=== PATIENT | female | born 1995 | race Hispanic/Latino ===

== ENCOUNTER 2016-11-30 09:48 | Inpatient (IN) | payer BC, MEDICAID ==
--- NOTE | 2016-11-27 09:54 | History and Physical Report ---
History of Present Illness Date of examination: 11/27/16 Date of admission: 11/24/16 Chief complaint: cs History of present illness: Pt presents for elective primary c/s due to PTSD associated with previous vaginal delivery. Pt understands the risk of surgery and all questions were addressed and answered. She was given ample time to ask questions prior to signing the consent and had been counseled since 35 wks regarding this mode of delivery. Consents were singed and placed on the chart. Pt last delivery was a forceps assisted delivery that resulted in a 3rd degree laceration, post bleeding, and currently has left pt with lasting pain and irritation in the place were scar is. EDC Calculations LMP: 11/30/2016 EDC Confirmation: 11/30/2016 Gestational Age: 17 weeks Past History : 2 Term Births: 1 Living Children: 1 # 1 Delivery date: 2014 Weeks Gestation: 39 Delivery type: forceps Anesthesia type: epidural Delivery [place] [facility] [place] Sex: Male weight: 7-13 Comments: Social induction Past Medical History: Anxiety Stopped clonazepam one month ago Past Surgical History: Negative Past Surgical History Past Medical History Surgery (Non-sawsmith): Negative Past Surgical History Abnormal PAP: negative MICKEY Exposure: negative Infertility: negative Uterine Anomaly: negative Uterine Surgery (not C/S): negative Other Gynecologic Problems: negative Social Hx: Patient is single Smoking History: Patient currently smokes every day. Patient has been counseled to quit. Infection History Hx of STD: none Personal hx. of genital herpes: no Partner hx. of genital herpes: no Varicella/Chicken Pox Status: Previous Disease TB Risk: no Genetic History Congenital Heart Defect: Mom: no Dad: no Elmer Disease: Mom: no Dad: no Thalassemia Mom: no Dad: no Neural Tube Defect Mom: no Dad: no Down's Syndrome Mom: no Dad: no Flako-Sachs Mom: no Dad: no Sickle Cell Disease/Trait Mom: no Dad: no Hemophilia Mom: no Dad: no Muscular Dystrophy Mom: no Dad: no Cystic Fibrosis Mom: no Dad: no [place] Chorea Mom: no Dad: no Mental Retardation Mom: no Dad: no Fragile X Mom: no Dad: no Other Genetic/Chromosomal Disorder Mom: no Dad: no Child w/other defect Mom: no Dad: no Enviromental Exposures Enviromental Exposures Reviewed Xray Exposure: no Medication, drug, or alcohol use since LMP: no Chemical/Other Exposure: no Exposure to Cat Liter: no Hx of Parvovirus (Fifth Disease): no Occupational Exposure to Children: none Comments: Unemployed Past History Past Medical History: other (anxiety) Past Surgical History: no surgical history TUB PULLER History: denies: abnormal PAP smear, chlamydia Family/Genetic History: none Social history: no significant social history, single - Obstetrical History Expected Date of Delivery: 11/30/16 Actual Gestation: 39 Week(s) 4 Day(s) : 2 Para: 1 Number of Living Children: 1 Medications and Allergies Home Medications Medication Instructions Recorded Confirmed Last Taken Type Ibuprofen [Motrin 800 MG tab] 800 mg PO Q8HR PRN #30 tablet 11/27/16 Unknown Rx oxyCODONE /ACETAMINOPHEN [Percocet 1 tab PO Q6HR PRN #30 tablet 11/27/16 Unknown Rx 5/325] Active Meds: Active Medications Citric Acid/Sodium Citrate (Bicitra) 30 ml PO ONCE ONE Stop: 11/30/16 05:01 Famotidine (Pepcid) 20 mg IV ONCE ONE Stop: 11/30/16 05:01 Cefazolin Sodium (Ancef/Sterile Water 2 Gm/20 Ml) 2 gm in 20 mls @ 80 mls/hr IV PREOP NR PRN Reason: Protocol Lactated Ringer's (Lactated Ringers) 1,000 mls @ 2,250 mls/hr IV PREOP CARLOS Stop: 11/28/16 10:27 Oxytocin/Sodium Chloride (Pitocin/Ns 20 Unit/1000ml Drip) 20 units in 1,000 mls @ 0 mls/hr IV TITR CARLOS PRN Reason: As Directed Metoclopramide HCl (Reglan) 10 mg IV ONCE ONE Stop: 11/30/16 05:01 Review of Systems All systems: negative - Physical Exam Cardiovascular: Normal S1, Normal S2 Lungs: Positive: Clear to auscultation, Normal air movement Abdomen: Positive: normal appearance, soft. Negative: distention, tenderness, guarding Genitourinary (Female): Positive: normal external genitalia, normal perenium - Obstetrical FHR: auscultation normal Results All other labs normal. Assessment and Plan - Patient Problems (1) 40 weeks gestation of Status: Acute Plan to address problem: -desires primary c/s -consents signed -To OR for above stated procedure.
[2016-11-30] MEDS ORDERED: LACTATED RINGERS 1,000 ML ONE (10:29)
[2016-11-30 10:54] LABS: Basophils % (Auto) 0.4 % (0.0-1.8); Eosinophils % (Auto) 2.1 % (0.0-4.3); Hematocrit 30.2 % (30.3-42.9); Hemoglobin 9.7 gm/dl (10.1-14.3); Mean Corpuscular HGB Conc 32 % (30-34); Mean Corpuscular Hemoglobin 28 pg (28-32); Mean Corpuscular Volume 87 fl (79-97); Platelet Count 282 K/mm3 (140-440); Red Blood Count 3.49 M/mm3 (3.65-5.03); Red Cell Distribution Width 15.8 % (13.2-15.2); White Blood Count 14.1 K/mm3 (4.5-11.0)
[2016-11-30] MEDS ORDERED: PITOCin/NS 20 UNIT/1000ML DRIP 20,000 MILLIUNITS/1,000 ML BAG IV ONE (11:14)
[2016-11-30] MEDS ORDERED: PEPCID IV ONE (11:15)
[2016-11-30] MEDS ORDERED: REGLAN ONE (11:15)
[2016-11-30] MEDS ORDERED: BICITRA ONE (11:15)
[2016-11-30] MEDS ORDERED: BICITRA PO NR (11:30)
[2016-11-30] MEDS ORDERED: PEPCID IV NR (11:30)
[2016-11-30] MEDS ORDERED: ANCEF/STERILE WATER 2 GM/20 ML 2 GM/20 ML SYRINGE IV NR (11:30)
[2016-11-30] MEDS ORDERED: REGLAN IV NR (11:30)
[2016-11-30] MEDS ORDERED: LACTATED RINGERS 1,000 ML IV SCH (11:30)
[2016-11-30] MEDS ORDERED: ZOFRAN IV PRN (11:42)
[2016-11-30] MEDS ORDERED: DILAUDID IV PRN (11:42)
[2016-11-30] MEDS ORDERED: NARCAN 0.4 MG/1 ML IV PRN ×2 (11:42→13:06)
[2016-11-30] MEDS ORDERED: BENADRYL IV PRN (11:42)
--- NOTE | 2016-11-30 11:42 | Anesthesia Consultation ---
Anesthesia Consult and Med Hx Date of service: 11/30/16 - Airway Anesthetic Teeth Evaluation: Good ROM Head & Neck: Adequate Mental/Hyoid Distance: Adequate Mallampati Class: Class II Intubation Access Assessment: Probably Good - Pre-Operative Health Status ASA Pre-Surgery Classification: ASA2 Proposed Anesthetic Plan: Epidural, Spinal - Pulmonary Hx Smoking: Yes Hx Asthma: No COPD: No - Cardiovascular System Hx Hypertension: No - Central Nervous System Hx Seizures: No Hx Psychiatric Problems: Yes (anxiety, panic attacks) - Endocrine Hx Renal Disease: No Hx End Stage Renal Disease: No Hx Hypothyroidism: No Hx Hyperthyroidism: No - Hematic Hx Anemia: No Hx Sickle Cell Disease: No - Other Systems Hx Alcohol Use: No Hx Obesity: Yes (BMI 36.5)
[2016-11-30] MEDS ORDERED: ANCEF/STERILE WATER 2 GM/20 ML IV ONE (11:43)
[2016-11-30] MEDS ORDERED: MORPHINE ONE (11:44)
--- NOTE | 2016-11-30 11:45 | Anesthesia Day of Surgery ---
Anesthesia Day of Surgery - Day of Surgery Patient Examined: Yes Patient H&P Reviewed: Yes Patient is NPO: Yes
[2016-11-30] MEDS ORDERED: NACL 0.9% 500 ML 500 ML IV SCH (11:52)
[2016-11-30] MEDS ORDERED: ePHEDrine SULFATE ONE (11:58)
[2016-11-30] MEDS ORDERED: SODIUM CHLORIDE FLUSH SYRINGE 10 ML IV SCH (12:00)
[2016-11-30] MEDS ORDERED: PITOCin/NS 20 UNIT/1000ML DRIP 20 UNITS/1,000 ML BAG IV SCH ×2 (12:00→14:00)
[2016-11-30] MEDS ORDERED: WATER FOR IRRIG STERILE IR ONE (12:00)
[2016-11-30] MEDS ORDERED: NACL 0.9% IR ONE (12:00)
[2016-11-30] MEDS ORDERED: NACL 0.9% 1000 ML 1,000 ML ONE (12:15)
[2016-11-30] MEDS ORDERED: ZOFRAN ONE (12:38)
[2016-11-30] MEDS ORDERED: TORADOL ONE (12:38)
[2016-11-30] MEDS ORDERED: LANSINOH TP PRN (13:06)
[2016-11-30] MEDS ORDERED: TUCKS PAD TP PRN (13:06)
[2016-11-30] MEDS ORDERED: MYLICON PO PRN (13:06)
[2016-11-30] MEDS ORDERED: ANUCORT-HC PR PRN (13:06)
--- NOTE | 2016-11-30 13:22 | Operative Report ---
Operative Report Operative Report: Date of procedure: 11/30/2016 Pre-operative diagnosis: 40 weeks gestation elective primary section History of forceps assisted vaginal delivery Anxiety Post-operative diagnosis: Same Procedure name(s): Primary low transverse section via Pfannenstiel skin incision Surgeon: Dr. Roche Print Line Tailer: Certified surgical scrub assistant director of security Anesthesia: Spinal EBL: 700 mL Urine output: 200 mL of clear urine at end of procedure Fluids: 1500 mL Findings: Liveborn female infant nuchal cord 1 easily reduced weight 7 lbs. 7 oz. Apgars of 9 and 9 at one and 5 minutes Nuchal cord 1 easily reduced Grossly normal fallopian tubes and ovaries bilaterally Normal uterus Indications: Patient with a history of vacuum-assisted vaginal delivery that was very traumatic. The delivery caused the patient to have anxiety throughout the entire as well as anxiety and vaginal pain since delivery. Patient did not desire to have a vaginal delivery due to the above-stated symptoms she was having. Patient desired elective primary section. Patient was counseled after several office sessions regarding the risks benefits and alternatives to primary section. She was given ample time to ask questions all of which were addressed. Patient signed informed consent prior to section today. All questions were addressed and answered. Procedure: Patient was taking to the operating room. Patient was then prepped and draped in sterile fashion after anesthesia was found to be adequate. A low transverse skin incision was made with the scalpel and carried down to the underlying layer of fascia with the Bovie. The fascia was then incised in the midline and this incision was extended bilaterally with the Bovie. The superior aspect of the fascia was grasped with Clark clamps tented upward and dissected off of the anterior rectus muscles with the scalpel. In similar fashion the inferior aspect of the fascia was grasped with Clark clamps tented upward and dissected off of the anterior rectus muscles. The rectus muscles were then bluntly divided in the midline. The peritoneum was identified and entered into bluntly. The Andrew retractor was placed The bladder blade was placed. The bladder flap was created using the Metzenbaum scissors. The bladder blade was replaced. A lower transverse uterine incision was made with the scalpel and extended bilaterally with the bandage scissors. Artificial rupture of membranes was performed yielding clear amniotic fluid. The infant's head was then delivered atraumatically. The anterior shoulder and rest of infant delivered without difficulty. The umbilical cord was clamped x2. The cord was cut. The infant was then placed in sterile bassinet. The cord blood was collected The placenta was manually extracted in its entirety. The uterus was exteriorized and cleared of all clots and debris. The uterine incision was closed using 0 Vicryl in a running locking fashion. A second imbricating layer of the same suture was then created. The posterior cul-de-sac was copiously irrigated. The uterus was returned to the abdomen. Tisseel was placed along the uterine incision to secure excellent hemostasis. The gutters were also irrigated. The Andrew retractor was removed. The anterior rectus muscles were reapproximated using 3-0 Vicryl. The anterior rectus fascia was reapproximated using 0 Vicryl in a running fashion. The subcuticular fat was reapproximated using 2-0 Vicryl in a running fashion. The skin was reapproximated with 4-0 Monocryl with a subcuticular stitch. The patient tolerated the procedure well. Sponge lap and needle counts were all correct x3. Patient was taken to the recovery room awake and in stable condition.
[2016-11-30] MEDS: D5LR 1,000 ML IV SCH (15:21)
[2016-11-30] MEDS: SUDAFED PO PRN (16:20)
[2016-11-30] MEDS ORDERED: FIORICET PO PRN (17:48)
[2016-11-30] MEDS: NORCO 5/325 PO PRN ×2 (18:00→22:20)
--- NOTE | 2016-11-30 18:40 | Progress Note ---
Subjective Date of service: 11/30/16 Interval history: Ms Rivas is a 21 year old female who underwent C section today under spinal anesthesia. She is presently experiencing a severe headache. She has a history of headaches, mainly sinus type but also migraine. She also reports that she had a similar headache after her prior c section. The headache does not have clear positional characteristics and she did not have a blood patch after the prior c section. She reports some improvement after norco. Do not feel that this headache is post dural puncture but will reevaluate tomorrow. Objective - Constitutional Vitals: Vital Signs - 12hr 11/30/16 11/30/16 11/30/16 13:11 13:15 13:20 Temperature 98 F Pulse Rate 87 88 87 Respiratory 14 14 14 Rate Blood Pressure 141/67 130/75 139/76 O2 Sat by Pulse 97 97 97 Oximetry 11/30/16 11/30/16 11/30/16 13:25 13:40 13:55 Temperature Pulse Rate 91 H 87 95 H Respiratory 15 15 14 Rate Blood Pressure 134/76 131/69 140/78 O2 Sat by Pulse 97 97 97 Oximetry 11/30/16 11/30/16 11/30/16 14:10 14:20 15:16 Temperature Pulse Rate 96 H 99 H Respiratory 14 14 22 Rate Blood Pressure 136/56 134/69 O2 Sat by Pulse 97 97 Oximetry - Labs CBC & Chem 7: 11/30/16 10:30 Labs: Abnormal lab results 11/30/16 11/30/16 Range/Units 10:30 10:30 WBC 14.1 H (4.5-11.0) K/mm3 RBC 3.49 L (3.65-5.03) M/mm3 Hgb 9.7 L (10.1-14.3) gm/dl Hct 30.2 L (30.3-42.9) % RDW 15.8 H (13.2-15.2) % Floyd # 1.0 H (0.0-0.8) K/mm3 Seg Neutrophils % 74.9 H (40.0-70.0) % Seg Neutrophils # 10.5 H (1.8-7.7) K/mm3 Crossmatch See Detail
[2016-11-30] MEDS: ANCEF/NS 1 GM/50 ML 1 GM/50 ML BAG IV SCH (20:26)
[2016-11-30] MEDS: TORADOL IV PRN (20:38)
[2016-12-01] MEDS: SUDAFED PO PRN ×3 (00:01→20:45)
[2016-12-01] MEDS: D5LR 1,000 ML IV SCH (00:02)
[2016-12-01] MEDS: TORADOL IV PRN (02:48)
[2016-12-01] MEDS: NORCO 5/325 PO PRN (04:18)
[2016-12-01] MEDS: ANCEF/NS 1 GM/50 ML 1 GM/50 ML BAG IV SCH (04:18)
[2016-12-01] MEDS ORDERED: BOOSTRIX IM ONE (06:00)
[2016-12-01 06:20] LABS: Hematocrit 25.5 % (30.3-42.9); Hemoglobin 8.3 gm/dl (10.1-14.3)
[2016-12-01] MEDS ORDERED: PERCOCET 5/325 ONE (07:45)
[2016-12-01] MEDS ORDERED: PERCOCET 5/325 PO PRN (07:49)
--- NOTE | 2016-12-01 07:54 | Progress Note ---
<PANTERATHOMPSON Donald - Last Filed: 12/01/16 07:49> Assessment and Plan patient in bed, crying with pain unrelieved by all pain medication received up to this time. Discussed expectations for pain d/t having marjor abdominal surgery. Will order additional PO pain medication. Discussed importance of advancing activity today as tolerated, rn to remove dressing after pain medication. Afebrile, tachycardia in the 103-109 range, b/p 130/40's/50-70's. Pt denies HOSKINS, blurred vision or epigastric pain. Pt is taking sudafed for nasal/ sinus congestion that could also be contributing to the slightly elevated blood pressures. Pre-e labs ordered by Dr. Riddle this morning. post op H&H 8.3/25.5 , patient denies s/s anemia during ambulation. Anemia preexisting in with expected decrease post op, will supplement with PO FE. Continue current postop pathway. - Patient Problems (1) Anemia affecting in third trimester Current Visit: Yes Status: Acute Plan to address problem: Fe and colace monitor for s/s anemia (2) delivery delivered Current Visit: Yes Status: Acute Subjective - Subjective Date of service: 12/01/16 Principal diagnosis: postopday #1 s/p primary c/s Patient reports: appetite normal, voiding normally, flatus, no dizzy ambulation , no pain well controlled, no ambulating normally, no nauseated [place]: doing well (infant in holding nursery), bottle feeding Objective - Vital Signs Latest vital signs: Vital Signs Temp Pulse Pulse Resp BP BP Pulse Ox 12/01/16 04:48 98.4 F 106 H 20 142/72 12/01/16 01:18 98.4 F 103 H 20 134/76 11/30/16 20:26 98.4 F 109 H 20 142/59 11/30/16 18:00 22 11/30/16 15:16 22 11/30/16 14:20 99 H 14 134/69 97 11/30/16 14:10 96 H 14 136/56 97 11/30/16 13:55 95 H 14 140/78 97 11/30/16 13:40 87 15 131/69 97 11/30/16 13:25 91 H 15 134/76 97 11/30/16 13:20 87 14 139/76 97 11/30/16 13:15 88 14 130/75 97 11/30/16 13:11 98 F 87 14 141/67 97 Intake and Output 11/30/16 12/01/16 12/01/16 22:59 06:59 14:59 Intake Total 530 1120 Output Total 1450 2200 Balance -920 -1080 Intake: IV 410 1000 ANCEF/NS 1 GM/50 ML 1 gm 100 In 50 ml @ 100 mls/hr IV Q8H CARLOS Rx#:[id number] D5lr 1,000 ml @ 125 mls/ 310 1000 hr IV DIRECT CARLOS Rx#: [id number] Oral 120 Intake, Free Water 120 Output: Urine 1450 2200 Indwelling Catheter 900 1000 Void 550 1200 Other: Total, Intake Amount 120 Total, Output Amount 550 700 - Exam Breasts: Present: normal Cardiovascular: Present: Regular rate Lungs: Present: Clear to auscultation, Normal air movement Abdomen: Present: normal appearance, soft Uterus: Present: normal, firm, fundal height at umbilicus Extremities: Present: normal Deep Tendon Reflex Grade: Normal +2 Incision: Present: normal, dry, dressed - Labs Labs: Abnormal lab results 11/30/16 11/30/16 12/01/16 Range/Units 10:30 10:30 05:33 WBC 14.1 H (4.5-11.0) K/mm3 RBC 3.49 L (3.65-5.03) M/mm3 Hgb 9.7 L 8.3 L (10.1-14.3) gm/dl Hct 30.2 L 25.5 L (30.3-42.9) % RDW 15.8 H (13.2-15.2) % [place] # 1.0 H (0.0-0.8) K/mm3 Seg Neutrophils % 74.9 H (40.0-70.0) % Seg Neutrophils # 10.5 H (1.8-7.7) K/mm3 Crossmatch See Detail <RIGO RIDDLE - Last Filed: 12/01/16 20:01> Assessment and Plan Pt resting in bed with multiple family members and visitors present. States she feels much better. minimal bleeding Lungs: CTAB HR:: 112 Extremities: NT, trace edema, DP equal and strong, negative calf tenderness(B), negative Marlen's (B) h/h stable Will observe for now. Encouraged to take Zoloft No evidence DVT, PE Objective - Vital Signs Latest vital signs: Vital Signs Temp Pulse Resp BP Pulse Ox 12/01/16 19:00 134 H 98 12/01/16 18:13 98.4 F 130 H 20 133/65 12/01/16 15:43 20 12/01/16 12:00 125 H 12/01/16 11:45 18 12/01/16 08:45 98.5 F 118 H 20 133/83 12/01/16 08:00 20 12/01/16 04:48 98.4 F 106 H 20 142/72 12/01/16 01:18 98.4 F 103 H 20 134/76 11/30/16 20:26 98.4 F 109 H 20 142/59 Intake and Output 12/01/16 12/01/16 12/01/16 06:59 14:59 22:59 Intake Total 1120 600 120 Output Total 2200 1400 Balance -1080 -800 120 Intake: IV 1000 D5lr 1,000 ml @ 125 mls/ 1000 hr IV DIRECT CARLOS Rx#: [id number] Oral 600 120 Intake, Free Water 120 Output: Urine 2200 1400 Indwelling Catheter 1000 Void 1200 1400 Other: Total, Intake Amount 240 120 Total, Output Amount 700 600 Voiding Method Toilet Toilet - Labs Labs: Abnormal lab results 12/01/16 12/01/16 12/01/16 Range/Units 05:33 07:55 19:13 Hgb 8.3 L 8.8 L (10.1-14.3) gm/dl Hct 25.5 L 27.4 L (30.3-42.9) % Creatinine 0.5 L (0.7-1.2) mg/dL Lactate Dehydrogenase 248 H (91-180) units/L
[2016-12-01 08:43] LABS: Alanine Aminotransferase 12 units/L (7-56); Lactate Dehydrogenase 248 units/L (91-180); Uric Acid 6.2 mg/dL (3.5-7.6)
[2016-12-01] MEDS ORDERED: ZOLOFT PO SCH (10:00)
[2016-12-01] MEDS: FEOSOL PO SCH (11:45)
[2016-12-01] MEDS: PERCOCET 5/325 PO PRN ×3 (11:45→20:49)
[2016-12-01] MEDS: MOTRIN PO PRN ×2 (11:45→18:10)
--- NOTE | 2016-12-01 12:37 | Progress Note ---
Subjective Date of service: 12/01/16 Principal diagnosis: postopday #1 s/p primary c/s Interval history: 1st POD after Patient is in the bed, comfortable. Post op pain is well controlled with pain meds. No headache. Ambulated well. No residual neurological deficit. No anesthesia complications Objective - Constitutional Vitals: Vital Signs - 12hr 12/01/16 12/01/16 12/01/16 01:18 04:48 08:00 Temperature 98.4 F 98.4 F Pulse Rate [ 103 H 106 H Left] Respiratory 20 20 20 Rate Blood Pressure 134/76 142/72 [Left Arm] 12/01/16 12/01/16 08:45 11:45 Temperature 98.5 F Pulse Rate [ 118 H Left] Respiratory 20 20 Rate Blood Pressure 133/83 [Left Arm] - Labs CBC & Chem 7: 12/01/16 07:55 12/01/16 07:55 Labs: Abnormal lab results 12/01/16 12/01/16 Range/Units 05:33 07:55 Hgb 8.3 L (10.1-14.3) gm/dl Hct 25.5 L (30.3-42.9) % Creatinine 0.5 L (0.7-1.2) mg/dL Lactate Dehydrogenase 248 H (91-180) units/L
[2016-12-01 19:37] LABS: Hematocrit 27.4 % (30.3-42.9); Hemoglobin 8.8 gm/dl (10.1-14.3)
[2016-12-02] MEDS: PERCOCET 5/325 PO PRN ×4 (01:28→16:43)
[2016-12-02 02:37] LABS: Bacteria,Urine 2+ /HPF (Negative); Bilirubin,Urine NEG (Negative); Blood,Urine LG (Negative); Ketones,Urine NEG (Negative); Leukocyte Esterase,Urine LG (Negative); Mucus,Urine FEW /HPF; Nitrite,Urine NEG (Negative); Urobilinogen,Urine < 2.0 mg/dL (<2.0)
[2016-12-02 02:40] LABS: RBC,Urine > 182.0 /HPF (0.0-6.0)
--- NOTE | 2016-12-02 06:31 | Discharge Summary ---
Providers - Providers Date of Admission: 11/30/16 09:48 Date of discharge: 12/02/16 (pt asking to be discharged. She is aware we are doing testing for reasons for tachycardia) Attending physician: ALAINA HERNANDEZ Primary care physician: ALAINA HERNANDEZ Hospitalization Reason for admission: section Delivery: Procedure: primary low transverse Episiotomy: none Laceration: none Incision: normal, dry, intact Other procedures: none complications: none Discharge diagnosis: IUP at term delivered baby: female Hospital course: uncomplicated primary section Pt asking to go home today "I want to go to my own bed." VS: pulse remains elevated 110-117 BP 140-130/70-60 afebrile FF below umb Lochia scant Incision D&I Pt wearing abdominal binder for support. As noted pt has pre-existing anemia remains asymptomatic. Pt stable s/p primary section P: d/c later today with instructions. Will consult with . RN states the Free 3 thyroid lab is a send out, no results at this time. Condition at discharge: Good Disposition: DISCHARGED TO HOME OR SELFCARE - Discharge Diagnoses (1) delivery delivered Status: Acute Comment: RTO 1 week for postop care Plan - Discharge Medications Prescriptions: Docusate Sodium [Colace] 100 mg PO BID PRN #30 capsule PRN Reason: Constipation Ferrous Sulfate [Feosol 325 MG tab] 325 mg PO BID #60 tablet Ibuprofen [Motrin 800 MG tab] 800 mg PO Q8HR PRN #30 tablet PRN Reason: Pain oxyCODONE /ACETAMINOPHEN [Percocet 5/325] 1 tab PO Q4HR #30 tab - Provider Discharge Summary Activity: routine, no sex for 6 weeks, no heavy lifting 4 weeks, no strenuous exercise Diet: routine Instructions: routine Additional instructions: [] Smoking cessation referral if applicable(refer to patient education folder for contact #) [] Refer to [facility] Booklet Call your doctor immediately for: * Fever > 100.5 * Heavy vaginal bleeding ( >1 pad per hour) * Severe persistent headache * Shortness of breath * Reddened, hot, painful area to leg or breast * Drainage or odor from incision. * Keep incision clean and dry at all times and follow doctor's instructions regarding bathing/showering - Follow up plan Follow up: ALAINA HERNANDEZ MD [Primary Care Provider] - 7 Days (Congratulations! Please call [phone] to schedule your postoperative visit. Please take medications as prescribed. Call with any headache not relieved with Tylenol, blurred vision, chest pain. Call with any concerns. )
--- NOTE | 2016-12-02 07:06 | Event Note ---
Date: 12/02/16 (will hold d/c) After speaking with plan will be to hold discharge until tomorrow to further evaluate the tachycardia. Pt made aware of delay by RN will see pt @ lunch to answer all questions.
[2016-12-02] MEDS: FEOSOL PO SCH (11:00)
[2016-12-02] MEDS: MOTRIN PO PRN ×2 (11:01→16:44)
--- NOTE | 2016-12-02 12:41 | Progress Note ---
Subjective Date of service: 12/02/16 Principal diagnosis: postopday #1 s/p primary c/s Interval history: 2nd POD after Patient is in the bed, comfortable. Post op pain is well controlled with pain meds. No headache. Ambulated well. No residual neurological deficit. No anesthesia complications Objective - Constitutional Vitals: Vital Signs - 12hr 12/02/16 12/02/16 12/02/16 01:20 07:40 08:00 Temperature 98 F 97.8 F Pulse Rate [ 117 H 115 H Left] Respiratory 20 20 Rate Blood Pressure 138/67 132/75 [Left Arm] O2 Sat by Pulse 98 Oximetry - Labs CBC & Chem 7: 12/01/16 19:13 12/01/16 07:55 Labs: Abnormal lab results 12/01/16 12/01/16 Range/Units 19:13 Unknown Hgb 8.8 L (10.1-14.3) gm/dl Hct 27.4 L (30.3-42.9) % Urine WBC (Auto) 33.0 H (0.0-6.0) /HPF
--- NOTE | 2016-12-02 13:19 | Event Note ---
Date: 12/02/16 Agree with MW note and exam. pt doing well this am when I was at bedside aroun 0800. She desires d/c home. No sob, chest pain, headaches, dizziness with ambulation or palpitations. She states she has had anxiety since being the the hospital and after sx but was able to rest well last night and reports no anxiety at this time. Will con't to monitor for now as tacycardia seems to be during periods when pt is having increased stress or anxiety. If pt remains stable and pulse <120 will d/c home with f/u in the office. Plan of care d/w pt and mother and all questions were addressed and answered.
[2016-12-02] MEDS: NORCO 5/325 PO PRN (14:56)
[2016-12-02 17:23] VITALS: BP 133/66
[2016-12-03] MEDS ORDERED: BOOSTRIX IM ONE (06:00)
== END 2016-12-02 18:45 | disposition home or self-care (01) | DRG 766 ==
LOC: APU 09:48 → OB 14:34
PROVIDERS: ADMIT Obstetrics & Gynecology; ATTEND Obstetrics & Gynecology
PROC: 10D00Z1 Extraction of Products of Conception, Low, Open Approach (ICD-10-PCS; principal; 2016-11-30)
DX: O99.02 Anemia complicating childbirth (principal); O69.81X0 Labor and delivery complicated by cord around neck, without compression, not applicable or unspecified; O90.89 Other complications of the puerperium, not elsewhere classified; R00.0 Tachycardia, unspecified; R51 Headache; F41.9 Anxiety disorder, unspecified; Z3A.40 40 weeks gestation of pregnancy; Z37.0 Single live birth
CPT/HCPCS: 36415; 81001; 82565; 83615; 84439; 84443; 84450; 84460; 84481; 84550; 85014; 85018; 85025; 85049; 86850; 86900; 86901; 86920; 90471; 99406; C9250; J0690; J1170; J1885; J2270; J2405; J2590; J2765; J7030; J7120; J7121